=== PATIENT | female | born 1985 | race Two or more races ===

== ENCOUNTER 2016-09-25 21:52 | Emergency (ER) | payer MEDICAID ==
[~2016-09-25] VITALS: Ht 165.1 cm; Wt 105.2 kg
[2016-09-25 21:59] VITALS: BP 128/83
[2016-09-25] MEDS ORDERED: traMADol HCL 50 MG TAB PO ONE (23:00)
== END 2016-09-26 | disposition home or self-care (01) ==
LOC: ER 21:54
DX: S82.831A Other fracture of upper and lower end of right fibula, initial encounter for closed fracture (principal); Z88.0 Allergy status to penicillin; W01.0XXA Fall on same level from slipping, tripping and stumbling without subsequent striking against object, initial encounter; Y93.89 Activity, other specified; Y99.8 Other external cause status; Y92.89 Other specified places as the place of occurrence of the external cause
CPT/HCPCS: 29515; 73610

== ENCOUNTER 2019-01-11 04:12 | Emergency (ER) | payer MEDICAID ==
[~2019-01-11] VITALS: Ht 165.1 cm; Wt 79.4 kg
[2019-01-11 04:31] VITALS: BP 132/87
[2019-01-11 05:15] LABS: Urine Bacteria FEW /hpf (None Seen); Urine Blood TRACE /uL (Negative); Urine Mucus FEW (None Seen); Urine Specific Gravity 1.027 (1.001-1.035); Urine WBC 3 /hpf (0 - 5)
== END 2019-01-11 06:14 | disposition left against medical advice (07) ==
LOC: ER 04:12
DX: R10.9 Unspecified abdominal pain (principal); R11.2 Nausea with vomiting, unspecified; R19.7 Diarrhea, unspecified; Z53.21 Procedure and treatment not carried out due to patient leaving prior to being seen by health care provider
CPT/HCPCS: 81001; 81025

== ENCOUNTER 2025-04-26 13:31 | Emergency (ER) | payer MEDICAID ==
[~2025-04-26] VITALS: Ht 167.6 cm; Wt 80.5 kg
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
--- NOTE | 2025-04-26 15:13 | DVH ---
CT MAXILLOFACIAL WITHOUT Indication: fall/trauma/r/o fracture EXAM DATE: 04/26/2025 02:37 PM COMPARISON: None TECHNIQUE: CT of the maxillofacial bones without intravenous contrast. RADIATION DOSE: CTDIvol: 65.26 mGy, DLP: 1231.41 mGy*cm FINDINGS: The mastoids are well pneumatized. The paranasal sinuses are well pneumatized. Calcification along the bilateral external auditory canal which could represent sequela of chronic otitis externa. The orbits and retrobulbar spaces are unremarkable. IMPRESSION: No facial region Fracture identified.
--- NOTE | 2025-04-26 15:13 | DVH ---
CHEST RADIOGRAPH Indication: fall/trauma/r/o fracture Technique: Single frontal view of the chest was obtained Comparison: None FINDINGS: Lines and Tubes: None Lungs: No focal consolidation. Pleura: No effusion. No pneumothorax. Cardiomediastinal contours: Unremarkable Bones: No acute osseous abnormality. IMPRESSION: No acute cardiopulmonary disease.
[2025-04-26] MEDS ORDERED: NAPR-957 PO (15:34)
[2025-04-26 16:07] VITALS: BP 136/78; PULSE 82; RESP 16; TEMP 97.7; O2SAT 97
== END 2025-04-26 15:44 | disposition home or self-care (01) ==
LOC: ER 13:31
DX: R51.9 Headache, unspecified (principal); R68.84 Jaw pain; R07.89 Other chest pain; Z88.0 Allergy status to penicillin; Z90.49 Acquired absence of other specified parts of digestive tract; Z98.51 Tubal ligation status; Z98.890 Other specified postprocedural states
CPT/HCPCS: 70486; 71045